=== PATIENT | male | born 1970 | race Caucasian/White ===

== ENCOUNTER 2023-11-24 21:57 | Emergency (ER) | payer SELFPAY ==
[~2023-11-24] VITALS: Ht 175.3 cm; Wt 76.7 kg
[2023-11-24 22:30] VITALS: BP 152/80; PULSE 90; RESP 18; TEMP 98.6; O2SAT 97
[2023-11-25] MEDS ORDERED: ACET-8905 PO (01:25)
[2023-11-25 01:32] VITALS: BP 140/78; PULSE 81; RESP 16; TEMP 98.6; O2SAT 97
== END 2023-11-25 01:32 | disposition home or self-care (01) ==
LOC: MED 21:57
DX: K08.89 Other specified disorders of teeth and supporting structures (principal); E11.9 Type 2 diabetes mellitus without complications; Z79.899 Other long term (current) drug therapy
CPT/HCPCS: 99283